=== PATIENT | female | born 1965 | race African-American/Black ===

== ENCOUNTER 2016-07-18 14:06 | Inpatient (IN) | payer MEDICARE, MEDICAID ==
[~2016-07-18] VITALS: Ht 170.2 cm; Wt 101.8 kg
[~2016-07-18 14:06] MED LIST: AMLO10TA2 PO; CARI350T21 PO; CLO01T GT; CLOP75TA41 PO; ESCI20TA51 PO; FAM20T PO; FAMO-12 PO; HYDR200T36 PO; METF-312 PO; MODA100T29 OR; NOR5T GT; OLMETAB3 PO; PRISTIQUE PO; SIMV-8 PO; SOLI5TAB6 PO; VALS160T51 PO
[2016-07-18 15:34] LABS: Basophils # (auto) 0 uL; Basophils % (auto) 0.4 % (0.0-2.0); DEFINITIVE VIEW TRANSMISSION; Eosinophils # (auto) 0.1 uL; Eosinophils % (auto) 1.7 % (0.0-7.0); Hematocrit 43.9 % (36.0-46.0); Hemoglobin 14.5 g/dL (12.2-16.2); Lymphocytes % (auto) 41.1 % (10.0-50.0); Mean Corpuscular Hemoglobin 26.5 pg (28.0-32.0); Mean Corpuscular Volume 80.4 fL (80.0-100.0); Mean Platelet Volume 8.2 fL (7.4-10.4); Monocytes # (auto) 0.2 uL; Monocytes % (auto) 3.1 % (0.0-12.0); Neutrophils # (auto) 2.6 uL; Neutrophils % (auto) 53.7 % (37.0-80.0); Platelet Count (auto) 273 10^3/uL (140-450); Red Cell Distribution Width 12.8 % (11.6-16.0); White Blood Cell 4.9 10^3/uL (4.4-10.8)
[2016-07-18 15:38] LABS: Albumin 4.2 g/dL (3.4-5.0); Calcium 8.9 mg/dL (8.5-10.1); Magnesium 2.2 mg/dL (1.6-2.6); Potassium 3.9 mmol/L (3.5-5.1)
[2016-07-18 15:41] LABS: Bilirubin, Total 0.4 mg/dL (0.2-1.0); Total Protein 8.2 g/dL (6.4-8.2)
[2016-07-18] MEDS ORDERED: SODIUM CHLORIDE 0.9% 1,000 ML IVB ONE (15:44)
[2016-07-18] MEDS ORDERED: SODIUM CHLORIDE 0.9% 1,000 ML IV ONE (16:00)
[2016-07-18 16:07] LABS: Amylase 53 U/L (25-115)
[2016-07-18 16:28] LABS: INR 0.99 (0.9-1.15); Partial Thromboplastin Time 22.8 sec (22.64-33.71); Prothrombin Time 10.2 sec (9.37-12.3)
[2016-07-18 16:30] LABS: Urine RBC None Seen /hpf (0 - 4)
[2016-07-18 16:55] LABS: Urine Bilirubin Negative (Negative); Urine Blood Negative /uL (Negative); Urine Color Colorless (Yellow); Urine Ketone Negative (Negative); Urine Nitrite Negative (Negative); Urine Squamous Epithelial Cell FEW /hpf (<5); Urine Urobilinogen Normal (Negative); Urine pH 5.5 (5.0-8.0)
[2016-07-18 16:56] LABS: Urine Glucose 4+ mg/dL (Normal)
[2016-07-18] MEDS ORDERED: InsuLIN REG 1unit/0.01ml Soln (100units/ml) SC ONE ×2 (17:30→21:00)
[2016-07-18] MEDS ORDERED: InsuLIN REG 1unit/0.01ml Soln (100units/ml) IV ONE ×3 (17:30→23:30)
[2016-07-18] MEDS ORDERED: NITROGLYCERIN 0.4 MG SL TAB SL PRN (23:30)
[2016-07-18] MEDS ORDERED: DEXTROSE (50%) 50ML SYRG IV PRN (23:30)
[2016-07-18] MEDS: SODIUM CHLORIDE 0.9% 1,000 ML IV SCH (23:53)
[2016-07-19] VITALS (7 sets, daily range): BP systolic 102–140; BP diastolic 80–93
[2016-07-19] MEDS ORDERED: HYDROcodone-ACET 10/325MG TAB PO ONE
[2016-07-19] MEDS: ACCU-CHEK COMFORT CURVE STRIP VI SCH ×7 (00:07→23:50)
[2016-07-19] MEDS ORDERED: LINA5TAB PO (00:22)
[2016-07-19] MEDS ORDERED: ESCI20TA PO (00:23)
[2016-07-19] MEDS ORDERED: HYDR-4072 PO ×2 (01:25→01:27)
[2016-07-19] MEDS: InsuLIN REG 1unit/0.01ml Soln (100units/ml) SC SCH ×6 (04:26→20:00)
[2016-07-19] MEDS ORDERED: INFLUENZA QUAD 2016-2017 0.5 ML SYRG IM ONE (04:45)
[2016-07-19] MEDS: cloNIDine HCL 0.1 MG TAB PO SCH ×3 (05:44→22:10)
[2016-07-19 05:47] LABS: Albumin 3.5 g/dL (3.4-5.0); BUN/Creatinine Ratio 12.6; Bilirubin, Total 0.3 mg/dL (0.2-1.0); Calcium 8.5 mg/dL (8.5-10.1); Potassium 3.6 mmol/L (3.5-5.1); Total Protein 6.4 g/dL (6.4-8.2)
[2016-07-19] MEDS ORDERED: metFORMIN HYDROCHLORIDE 500 MG TAB PO ONE (10:00)
[2016-07-19] MEDS ORDERED: INSULIN DETEMIR(LEVEMIR) 1unit/0.01ml Soln (100units/ml) SC ONE (10:00)
[2016-07-19] MEDS ORDERED: FAMOTIDINE 20 MG TAB PO ONE (10:00)
[2016-07-19] MEDS ORDERED: amLODIPine BESYLATE 5 MG TAB PO ONE (10:00)
[2016-07-19] MEDS ORDERED: cloNIDine HCL 0.1 MG TAB PO ONE (10:00)
[2016-07-19] MEDS: metFORMIN HYDROCHLORIDE 500 MG TAB PO SCH ×2 (10:45→22:06)
[2016-07-19] MEDS: SODIUM CHLORIDE 0.9% 1,000 ML IV SCH (12:38)
[2016-07-20] MEDS: SODIUM CHLORIDE 0.9% 1,000 ML IV SCH ×2 (03:30→15:46)
[2016-07-20] MEDS: ACCU-CHEK COMFORT CURVE STRIP VI SCH ×6 (03:30→23:50)
[2016-07-20] MEDS: InsuLIN REG 1unit/0.01ml Soln (100units/ml) SC SCH ×6 (03:39→20:00)
[2016-07-20 05:00] VITALS: BP 136/88
[2016-07-20] MEDS: cloNIDine HCL 0.1 MG TAB PO SCH ×3 (05:40→22:02)
[2016-07-20 08:49] VITALS: BP 141/64
[2016-07-20] MEDS: metFORMIN HYDROCHLORIDE 500 MG TAB PO SCH ×2 (09:37→22:01)
[2016-07-20 13:00] VITALS: BP 131/83
[2016-07-20] MEDS ORDERED: DOCUSATE SOD 100 MG CAP PO PRN (16:00)
[2016-07-20 17:05] VITALS: BP 131/71
[2016-07-20 22:00] VITALS: BP 160/84
[2016-07-20] MEDS: INSULIN DETEMIR(LEVEMIR) 1unit/0.01ml Soln (100units/ml) SC SCH (22:05)
[2016-07-21] MEDS ORDERED: ZOLPIDEM TARTRATE 5 MG TAB PO PRN (00:15)
[2016-07-21] MEDS: InsuLIN REG 1unit/0.01ml Soln (100units/ml) SC SCH ×5 (00:24→16:44)
[2016-07-21] MEDS: ACCU-CHEK COMFORT CURVE STRIP VI SCH ×4 (04:00→16:44)
[2016-07-21] MEDS: SODIUM CHLORIDE 0.9% 1,000 ML IV SCH (04:59)
[2016-07-21 05:00] VITALS: BP 140/109
[2016-07-21] MEDS: cloNIDine HCL 0.1 MG TAB PO SCH ×2 (05:57→16:43)
[2016-07-21 08:47] VITALS: BP 147/96
[2016-07-21] MEDS: INSULIN DETEMIR(LEVEMIR) 1unit/0.01ml Soln (100units/ml) SC SCH (10:00)
[2016-07-21] MEDS: metFORMIN HYDROCHLORIDE 500 MG TAB PO SCH (10:35)
[2016-07-21 13:00] VITALS: BP 147/97
[2016-07-21 17:16] VITALS: BP 136/97
[2016-07-21 18:12] VITALS: BP 136/97
== END 2016-07-21 19:40 | disposition home or self-care (01) | DRG 291 ==
LOC: ER 14:11 → OVERFLOW 14:12 → WEST WING 07-19 00:16
PROVIDERS: ADMIT Internal Medicine Cardiovascular Disease; ATTEND Internal Medicine Cardiovascular Disease
DX: I11.0 Hypertensive heart disease with heart failure (principal); N17.0 Acute kidney failure with tubular necrosis; E11.00 Type 2 diabetes mellitus with hyperosmolarity without nonketotic hyperglycemic-hyperosmolar coma (NKHHC); E87.1 Hypo-osmolality and hyponatremia; E11.65 Type 2 diabetes mellitus with hyperglycemia; I25.10 Atherosclerotic heart disease of native coronary artery without angina pectoris; F32.9 Major depressive disorder, single episode, unspecified; M32.9 Systemic lupus erythematosus, unspecified; I50.9 Heart failure, unspecified; Z82.49 Family history of ischemic heart disease and other diseases of the circulatory system; Z83.3 Family history of diabetes mellitus; Z85.3 Personal history of malignant neoplasm of breast; Z86.73 Personal history of transient ischemic attack (TIA), and cerebral infarction without residual deficits; Z79.899 Other long term (current) drug therapy; Z90.710 Acquired absence of both cervix and uterus; Z80.9 Family history of malignant neoplasm, unspecified; Z23 Encounter for immunization
CPT/HCPCS: 36415; 71010; 80053; 81001; 82150; 82962; 83690; 83735; 84484; 85025; 85049; 85610; 85730; 93005; 94761; 96361; 96372; 96374; G0463; J1815

== ENCOUNTER 2016-07-25 00:45 | Emergency (ER) | payer MEDICARE, MEDICAID ==
[~2016-07-25] VITALS: Ht 170.2 cm; Wt 97.1 kg
[~2016-07-25 00:45] MED LIST changes: -CARI350T21 PO; -CLOP75TA41 PO; +ESCI20TA PO; +HYDR-4072 PO; +LINA5TAB PO; -MODA100T29 OR; -NOR5T GT; -OLMETAB3 PO; -PRISTIQUE PO
[2016-07-25 01:11] VITALS: BP 154/106
[2016-07-25 01:41] LABS: Urine RBC None Seen /hpf (0 - 4)
[2016-07-25 01:50] LABS: Urine Bilirubin Negative (Negative); Urine Blood Negative /uL (Negative); Urine Color Yellow (Yellow); Urine Ketone Negative (Negative); Urine Squamous Epithelial Cell FEW /hpf (<5); Urine Urobilinogen Normal (Negative)
[2016-07-25 01:52] LABS: Urine Glucose 4+ mg/dL (Normal); Urine Nitrite POSITIVE (Negative)
[2016-07-25 01:52] LABS: DEFINITIVE VIEW TRANSMISSION; White Blood Cell 7.6 10^3/uL (4.4-10.8)
[2016-07-25 01:57] LABS: Hematocrit 39.8 % (36.0-46.0); Hemoglobin 12.9 g/dL (12.2-16.2); Mean Corpuscular Hemoglobin 26.4 pg (28.0-32.0); Mean Corpuscular Hgb Conc. 32.4 g/dL (32.0-36.0); Mean Corpuscular Volume 81.5 fL (80.0-100.0); Platelet Count (auto) 284 10^3/uL (140-450); Red Cell Distribution Width 13.7 % (11.6-16.0)
[2016-07-25 02:03] LABS: Metamyelocytes % 0; Myelocytes % 0; Promyelocytes % 0; Reactive Lymphocytes 0
[2016-07-25 02:10] LABS: BUN/Creatinine Ratio 11.5; Calcium 8.6 mg/dL (8.5-10.1); Magnesium 1.7 mg/dL (1.6-2.6); Potassium 3.7 mmol/L (3.5-5.1)
[2016-07-25 02:13] LABS: Bilirubin, Total 0.3 mg/dL (0.2-1.0); Total Protein 7.6 g/dL (6.4-8.2)
[2016-07-25 02:28] LABS: Hypersegmented Neutrophils Present; Platelet Estimate Adequate; RBC Morphology Normal
== END 2016-07-25 01:41 | disposition left against medical advice (07) ==
LOC: ER 00:47
DX: R73.9 Hyperglycemia, unspecified (principal); Z53.21 Procedure and treatment not carried out due to patient leaving prior to being seen by health care provider
CPT/HCPCS: 36415; 80053; 81001; 82962; 83735; 85007; 85027; 85049

== ENCOUNTER → 2016-10-24 | Outpatient (CLI) | payer MEDICARE, MEDICAID ==
[2016-10-24 12:55] LABS: BUN/Creatinine Ratio 18.9; Calcium 10.3 mg/dL (8.5-10.1); Potassium 4.2 mmol/L (3.5-5.1)
== END | disposition home or self-care (01) ==
LOC: LAB 09:45
PROVIDERS: ATTEND Internal Medicine Cardiovascular Disease
DX: I10 Essential (primary) hypertension (principal); E11.9 Type 2 diabetes mellitus without complications
CPT/HCPCS: 36415; 80048; 83036

== ENCOUNTER → 2017-02-22 | Outpatient (CLI) | payer MEDICARE, MEDICAID ==
[~2017-02-22] MED LIST changes: -METF-312 PO; +METF-370 PO
== END | disposition home or self-care (01) ==
LOC: Rad HDHVI 13:49
PROVIDERS: ATTEND Internal Medicine Cardiovascular Disease
DX: I10 Essential (primary) hypertension (principal); E78.5 Hyperlipidemia, unspecified
CPT/HCPCS: 93306

== ENCOUNTER → 2017-03-06 | Outpatient (CLI) | payer MEDICARE, MEDICAID ==
[~2017-03-06] VITALS: Ht 170.2 cm; Wt 105.2 kg
[~2017-03-06] MED LIST changes: +ADENOSINE 88 MG in GIVE UN-DILUTED 0 ML IV ONE; +ADENOSINE 90 MG/30 ML INJ IV ONE
== END | disposition home or self-care (01) ==
LOC: Rad HDHVI 13:51
PROVIDERS: ATTEND Internal Medicine Cardiovascular Disease
DX: I11.0 Hypertensive heart disease with heart failure (principal); I50.9 Heart failure, unspecified; E78.00 Pure hypercholesterolemia, unspecified; E11.9 Type 2 diabetes mellitus without complications
CPT/HCPCS: 78452; 93005; 96374; 96375; A9500; J0153

== ENCOUNTER → 2017-03-11 | Outpatient (CLI) | payer MEDICARE, MEDICAID ==
[~2017-03-11] MED LIST changes: -ADENOSINE 88 MG in GIVE UN-DILUTED 0 ML IV ONE; -ADENOSINE 90 MG/30 ML INJ IV ONE
== END | disposition home or self-care (01) ==
LOC: LAB 14:30
PROVIDERS: ATTEND Internal Medicine Cardiovascular Disease
DX: R94.4 Abnormal results of kidney function studies (principal); I11.0 Hypertensive heart disease with heart failure; I50.9 Heart failure, unspecified; I25.10 Atherosclerotic heart disease of native coronary artery without angina pectoris; E11.9 Type 2 diabetes mellitus without complications
CPT/HCPCS: 36415; 82565; 84520

== ENCOUNTER → 2017-03-20 | Outpatient (CLI) | payer MEDICARE, MEDICAID ==
[~2017-03-20] MED LIST changes: +IOHEXOL 350 MG/ML 100ML IJ ONE; +SODIUM CHLORIDE 0.9% 1,000 ML IV SCH
[2017-03-20 15:05] VITALS: BP 130/87
== END | disposition home or self-care (01) ==
LOC: Rad HDHVI 14:47
PROVIDERS: ATTEND Internal Medicine Cardiovascular Disease
DX: I50.9 Heart failure, unspecified (principal); I63.9 Cerebral infarction, unspecified; R06.02 Shortness of breath; R51 Headache
CPT/HCPCS: 71260; 82565; 96361; 96374; G0463; Q9967; 96360

== ENCOUNTER → 2017-03-21 | Outpatient (CLI) | payer MEDICARE, MEDICAID ==
[2017-03-21 10:00] VITALS: BP 129/75
[2017-03-21 13:05] VITALS: BP 142/89
== END ==
LOC: Rad HDHVI 09:53
PROVIDERS: ATTEND Internal Medicine Cardiovascular Disease
DX: I50.9 Heart failure, unspecified (principal); I63.9 Cerebral infarction, unspecified; R06.02 Shortness of breath; R04.0 Epistaxis; R51 Headache
CPT/HCPCS: 70496; 70498; 71275; 82565; 96361; 96374; G0463; Q9967; 96360

== ENCOUNTER → 2017-06-11 | Outpatient (CLI) | payer MEDICARE, MEDICAID ==
[~2017-06-11] MED LIST changes: -IOHEXOL 350 MG/ML 100ML IJ ONE; -SODIUM CHLORIDE 0.9% 1,000 ML IV SCH
[2017-06-11 12:50] LABS: BUN/Creatinine Ratio 8.2; Bilirubin, Total 0.3 mg/dL (0.2-1.0); Calcium 8.4 mg/dL (8.5-10.1); Potassium 3.7 mmol/L (3.5-5.1); Total Protein 7.8 g/dL (6.4-8.2)
== END | disposition home or self-care (01) ==
LOC: LAB 10:28
PROVIDERS: ATTEND Internal Medicine Cardiovascular Disease
DX: E78.00 Pure hypercholesterolemia, unspecified (principal); E11.9 Type 2 diabetes mellitus without complications; I11.0 Hypertensive heart disease with heart failure; I50.9 Heart failure, unspecified; D64.9 Anemia, unspecified
CPT/HCPCS: 36415; 80053; 80061; 83036

== ENCOUNTER → 2017-06-25 | Outpatient (CLI) | payer MEDICARE, MEDICAID | END | disposition home or self-care (01) | LOC: Rad HDHVI 13:05 | PROVIDERS: ATTEND Internal Medicine Cardiovascular Disease | DX: M25.78 Osteophyte, vertebrae (principal); M47.892 Other spondylosis, cervical region; I11.0 Hypertensive heart disease with heart failure; I50.9 Heart failure, unspecified; E11.9 Type 2 diabetes mellitus without complications; R51 Headache | CPT/HCPCS: 70450; 72125 ==

== ENCOUNTER → 2017-08-19 | Outpatient (CLI) | payer MEDICARE, MEDICAID ==
[2017-08-19 16:41] LABS: Basophils # (auto) 0 uL; Basophils % (auto) 0.4 % (0.0-2.0); Eosinophils # (auto) 0.1 uL; Eosinophils % (auto) 1.7 % (0.0-7.0); Hematocrit 40.1 % (36.0-46.0); Hemoglobin 13.4 g/dL (12.2-16.2); Lymphocytes # (auto) 2.8 uL; Lymphocytes % (auto) 45.6 % (10.0-50.0); Mean Corpuscular Hemoglobin 27.8 pg (28.0-32.0); Mean Corpuscular Hgb Conc. 33.5 g/dL (32.0-36.0); Monocytes # (auto) 0.2 uL; Monocytes % (auto) 3.8 % (0.0-12.0); Neutrophils # (auto) 2.9 uL; Neutrophils % (auto) 48.5 % (37.0-80.0); Nucleated Red Blood Cells % 0.1 %; Platelet Count (auto) 233 10^3/uL (140-450); Red Blood Cells 4.83 10^6/uL (4.0-5.20); Red Cell Distribution Width 12.4 % (11.8-14.3)
== END | disposition home or self-care (01) ==
LOC: LAB 12:59
PROVIDERS: ATTEND Internal Medicine Cardiovascular Disease
DX: D64.9 Anemia, unspecified (principal); E03.9 Hypothyroidism, unspecified
CPT/HCPCS: 36415; 84439; 84443; 85025

== ENCOUNTER → 2018-08-01 | Outpatient (CLI) | payer MEDICARE, MEDICAID ==
[~2018-08-01] MED LIST changes: +AMLO10TA12 PO; -AMLO10TA2 PO
[2018-08-01 15:19] LABS: Calcium 9.1 mg/dL (8.5-10.1); Potassium 4.1 mmol/L (3.5-5.1); Uric Acid 7.2 mg/dL (2.6-6.0)
== END | disposition home or self-care (01) ==
LOC: LAB 11:18
PROVIDERS: ATTEND Internal Medicine Cardiovascular Disease
DX: I10 Essential (primary) hypertension (principal); M10.9 Gout, unspecified
CPT/HCPCS: 36415; 80048; 84550

== ENCOUNTER 2018-08-04 21:46 | Emergency (ER) | payer MEDICARE, MEDICAID ==
[~2018-08-04] VITALS: Ht 170.2 cm; Wt 106.1 kg
[2018-08-04 22:13] VITALS: BP 149/92
[2018-08-04 22:30] LABS: Hemoglobin 13.1 g/dL (12.2-16.2); Mean Corpuscular Hemoglobin 28.5 pg (28.0-32.0); Mean Corpuscular Hgb Conc. 34.5 g/dL (32.0-36.0); Mean Corpuscular Volume 82.5 fL (80.0-100.0); Platelet Count (auto) 244 10^3/uL (140-450); Red Cell Distribution Width 13.1 % (11.8-14.3); White Blood Cell 6.1 10^3/uL (4.4-10.8)
[2018-08-04 22:32] LABS: Band Neutrophils % (manual) 0; Basophils % (manual) 0 (0.0-2.0); Blast Cells 0; Metamyelocytes % 0; Myelocytes % 0; Promyelocytes % 0; Reactive Lymphocytes 0
[2018-08-04 22:34] LABS: BUN/Creatinine Ratio 11.3; Calcium 8.8 mg/dL (8.5-10.1); Potassium 3.5 mmol/L (3.5-5.1)
[2018-08-04 22:39] LABS: Bilirubin, Total 0.3 mg/dL (0.2-1.0); Total Protein 7.6 g/dL (6.4-8.2)
[2018-08-04 22:40] LABS: INR 0.9 (0.9-1.15); Partial Thromboplastin Time 23.3 sec (23.78-33.04); Prothrombin Time 9.7 sec (9.27-12.13)
[2018-08-04 23:00] LABS: Eosinophils % (manual) 3 (0-7); Lymphocytes % (manual) 59 (10.0-50.0); Monocytes % (manual) 4 (0-12)
== END 2018-08-05 01:56 | disposition left against medical advice (07) ==
LOC: ER 21:48
DX: R07.9 Chest pain, unspecified (principal); Z53.21 Procedure and treatment not carried out due to patient leaving prior to being seen by health care provider
CPT/HCPCS: 36415; 71046; 80053; 84484; 85007; 85027; 85379; 85610; 85730; 93005

== ENCOUNTER 2021-05-31 12:56 | Inpatient (IN) | payer MEDICARE, MEDICAID ==
[~2021-05-31] VITALS: Ht 170.2 cm; Wt 104.0 kg
[~2021-05-31 12:56] MED LIST changes: +AMLO-496 PO; -AMLO10TA12 PO; -CLO01T GT; +CLO01T PO; +ESCI-34 PO; -ESCI20TA51 PO; -FAM20T PO; +FAMO20TA10 PO; +VALS160T4 PO; -VALS160T51 PO
[2021-05-31] MEDS ORDERED: hydrALAZINE HCL 20 MG/ML VL IV ONE (13:15)
[2021-05-31 14:26] LABS: Basophils # (auto) 0.1 10 ^3/uL (0-0.2); Eosinophils # (auto) 0.1 10 ^3/uL (0-0.8); Eosinophils % (auto) 0.9 % (0.0-7.0); Hematocrit 40.6 % (36.0-46.0); Hemoglobin 13.9 g/dL (12.2-16.2); Lymphocytes # (auto) 2.4 10 ^3/uL (0.4-5.4); Lymphocytes % (auto) 38.9 % (10.0-50.0); Mean Corpuscular Hgb Conc. 34.3 g/dL (32.0-36.0); Mean Corpuscular Volume 81.6 fL (80.0-100.0); Monocytes # (auto) 0.3 10 ^3/uL (0-1.3); Monocytes % (auto) 4.5 % (0.0-12.0); Neutrophils # (auto) 3.3 10 ^3/uL (1.6-8.6); Neutrophils % (auto) 54.7 % (37.0-80.0); Red Blood Cells 4.98 10^6/uL (4.0-5.20); Red Cell Distribution Width 13.4 % (11.8-14.3); White Blood Cell 6.1 10^3/uL (4.4-10.8)
[2021-05-31 14:44] LABS: Calcium 8.9 mg/dL (8.5-10.1); Magnesium 2.4 mg/dL (1.6-2.6); Potassium 3.2 mmol/L (3.5-5.1)
[2021-05-31 14:50] LABS: BUN/Creatinine Ratio 8.9; Bilirubin, Total 0.5 mg/dL (0.2-1.0); Total Protein 8.1 g/dL (6.4-8.2)
[2021-05-31] MEDS ORDERED: IOHEXOL 350 MG/ML 100ML IJ ONE (15:43)
[2021-05-31] MEDS ORDERED: ASPirin 81 mg TAB PO ONE (15:45)
[2021-05-31] MEDS ORDERED: ENOXAPARIN SOD 100 MG/1 ML SYRINGE SC ONE (15:45)
[2021-05-31] MEDS ORDERED: HYDROcodone-ACET 10/325MG TAB PO ONE (16:30)
[2021-05-31] MEDS ORDERED: ACETAMINOPHEN 325 MG TAB PO PRN (21:15)
[2021-05-31] MEDS ORDERED: hydrALAZINE HCL 20 MG/ML VL IV PRN (21:15)
[2021-05-31] MEDS ORDERED: ONDANSETRON HCL 4 MG/2 ML VIAL IV PRN (21:15)
[2021-06-01] MEDS: cloNIDine HCL 0.1 MG TAB PO SCH ×2 (00:24→06:59)
[2021-06-01] MEDS: VALSARTAN 80 MG TAB PO SCH ×3 (00:25→22:00)
[2021-06-01] MEDS: ATORVASTATIN 20 MG TAB PO SCH ×2 (00:25→22:34)
[2021-06-01] MEDS ORDERED: DEXTROSE (50%) 50ML SYRG IV PRN (02:00)
[2021-06-01 02:05] VITALS: BP 141/80
[2021-06-01] MEDS: TEMAZEPAM 15 MG CAP PO PRN ×2 (02:29→22:42)
[2021-06-01 05:15] VITALS: BP 119/68
[2021-06-01] MEDS: InsuLIN REG 1unit/0.01ml Soln (100units/ml) SC SCH ×4 (06:58→22:36)
[2021-06-01] MEDS: ACCU-CHEK COMFORT CURVE STRIP VI SCH ×4 (06:58→22:42)
[2021-06-01 09:29] VITALS: BP 100/52
[2021-06-01 09:39] LABS: Basophils # (auto) 0 10 ^3/uL (0-0.2); Basophils % (auto) 0.7 % (0.0-2.0); Eosinophils # (auto) 0.1 10 ^3/uL (0-0.8); Eosinophils % (auto) 1.8 % (0.0-7.0); Hematocrit 38.1 % (36.0-46.0); Hemoglobin 12.7 g/dL (12.2-16.2); Lymphocytes # (auto) 2.6 10 ^3/uL (0.4-5.4); Lymphocytes % (auto) 52.2 % (10.0-50.0); Mean Corpuscular Hemoglobin 27.5 pg (28.0-32.0); Mean Corpuscular Hgb Conc. 33.3 g/dL (32.0-36.0); Mean Corpuscular Volume 82.6 fL (80.0-100.0); Monocytes # (auto) 0.3 10 ^3/uL (0-1.3); Monocytes % (auto) 6.2 % (0.0-12.0); Neutrophils # (auto) 1.9 10 ^3/uL (1.6-8.6); Neutrophils % (auto) 39.1 % (37.0-80.0); Nucleated Red Blood Cells % 0.2 %; Red Blood Cells 4.61 10^6/uL (4.0-5.20); Red Cell Distribution Width 13.3 % (11.8-14.3)
[2021-06-01] MEDS ORDERED: POTASSIUM CHL 20 Meq TABLET PO ONE ×2 (10:00→11:30)
[2021-06-01] MEDS ORDERED: ASPirin 81 mg TAB PO SCH (10:00)
[2021-06-01 10:02] LABS: Albumin 3.2 g/dL (3.4-5.0); Calcium 8.3 mg/dL (8.5-10.1); Potassium 3.2 mmol/L (3.5-5.1)
[2021-06-01 10:06] LABS: BUN/Creatinine Ratio 12.9; Bilirubin, Total 0.6 mg/dL (0.2-1.0); Total Protein 6.2 g/dL (6.4-8.2)
[2021-06-01 11:06] LABS: Cholesterol 198 mg/dL (< 200); HDL Cholesterol 36 mg/dL (40-59); LDL Cholesterol 128 mg/dL (< 100); Triglycerides 169 mg/dL (< 150)
[2021-06-01] MEDS: PANTOPRAZOLE 40 MG TAB PO SCH (11:18)
[2021-06-01] MEDS: ENOXAPARIN SOD 40 MG/0.4 ML SYRINGE SC SCH (11:19)
[2021-06-01] MEDS: amLODIPine BESYLATE 5 MG TAB PO SCH (11:59)
[2021-06-01 12:52] VITALS: BP 137/84
[2021-06-01] MEDS ORDERED: ERGOCALCIFEROL 50,000 UNIT(1.25MG) CAP PO SCH (14:30)
[2021-06-01] MEDS: hydrALAZINE HCL 10 MG TAB PO SCH ×2 (15:17→22:00)
[2021-06-01] MEDS: HYDROcodone-ACET 10/325MG TAB PO PRN ×2 (15:17→19:35)
[2021-06-01 16:32] VITALS: BP 127/75
[2021-06-01 18:52] LABS: Urine Bacteria FEW /hpf (None Seen); Urine Blood Negative /uL (Negative); Urine Hyaline Cast FEW /lpf (0 - 2); Urine Mucus FEW (None Seen); Urine Specific Gravity 1.035 (1.001-1.035); Urine WBC 56 /hpf (0 - 5)
[2021-06-01 20:00] VITALS: BP 104/53
[2021-06-01] MEDS: hydrOXYchloroQUINE SULFATE 200 MG TAB PO SCH (22:35)
[2021-06-02 05:00] VITALS: BP 127/76
[2021-06-02] MEDS: hydrALAZINE HCL 10 MG TAB PO SCH ×2 (05:58→14:11)
[2021-06-02] MEDS ORDERED: INFLUENZA QUAD 2021-2022 0.5 ML SYRG IM ONE (06:30)
[2021-06-02] MEDS: ACCU-CHEK COMFORT CURVE STRIP VI SCH ×2 (06:42→11:45)
[2021-06-02] MEDS: InsuLIN REG 1unit/0.01ml Soln (100units/ml) SC SCH ×2 (06:42→11:46)
[2021-06-02] MEDS ORDERED: ADENOSINE 87 MG in GIVE UN-DILUTED 0 ML IV ONE (08:30)
[2021-06-02 08:51] VITALS: BP 123/88
[2021-06-02] MEDS ORDERED: ASPirin 81 mg TAB PO SCH (10:00)
[2021-06-02] MEDS: PANTOPRAZOLE 40 MG TAB PO SCH (10:01)
[2021-06-02] MEDS: HYDROcodone-ACET 10/325MG TAB PO PRN ×2 (10:01→14:14)
[2021-06-02] MEDS: VALSARTAN 80 MG TAB PO SCH (10:02)
[2021-06-02] MEDS: amLODIPine BESYLATE 5 MG TAB PO SCH (10:03)
[2021-06-02] MEDS: ENOXAPARIN SOD 40 MG/0.4 ML SYRINGE SC SCH (10:04)
[2021-06-02] MEDS: hydrOXYchloroQUINE SULFATE 200 MG TAB PO SCH (10:04)
[2021-06-02 11:57] LABS: BUN/Creatinine Ratio 13.3; Calcium 8.4 mg/dL (8.5-10.1); Potassium 3.8 mmol/L (3.5-5.1)
[2021-06-02 13:00] VITALS: BP 128/82
[2021-06-02] MEDS ORDERED: CIPROFLOXACIN HCL 500 MG TAB PO ONE (14:15)
[2021-06-02] MEDS ORDERED: CIP500T PO (15:04)
[2021-06-02 17:00] VITALS: BP 123/73
[2021-06-02 17:04] VITALS: BP 123/73
[2021-06-02] MEDS ORDERED: CIPROFLOXACIN HCL 500 MG TAB PO SCH (22:00)
== END 2021-06-02 17:50 | disposition home or self-care (01) | DRG 280 ==
LOC: EDBD 12:56 → ER 12:56 → TELE 21:12 → TELE-CENTR 06-01 02:05
PROVIDERS: ADMIT Nurse Practitioner; ATTEND Internal Medicine
DX: I16.1 Hypertensive emergency (principal); I21.4 Non-ST elevation (NSTEMI) myocardial infarction; N17.0 Acute kidney failure with tubular necrosis; I69.359 Hemiplegia and hemiparesis following cerebral infarction affecting unspecified side; N39.0 Urinary tract infection, site not specified; I13.0 Hypertensive heart and chronic kidney disease with heart failure and stage 1 through stage 4 chronic kidney disease, or unspecified chronic kidney disease; Z20.822 Contact with and (suspected) exposure to COVID-19; E11.22 Type 2 diabetes mellitus with diabetic chronic kidney disease; E66.01 Morbid (severe) obesity due to excess calories; E78.5 Hyperlipidemia, unspecified; E87.6 Hypokalemia; I50.9 Heart failure, unspecified; E11.21 Type 2 diabetes mellitus with diabetic nephropathy; I25.10 Atherosclerotic heart disease of native coronary artery without angina pectoris; N18.30 Chronic kidney disease, stage 3 unspecified; Z79.4 Long term (current) use of insulin; Z80.6 Family history of leukemia; Z82.49 Family history of ischemic heart disease and other diseases of the circulatory system; Z83.3 Family history of diabetes mellitus; Z85.3 Personal history of malignant neoplasm of breast; Z90.710 Acquired absence of both cervix and uterus; Z68.35 Body mass index [BMI] 35.0-35.9, adult
CPT/HCPCS: 36415; 70450; 71045; 71275; 78452; 80048; 80053; 80061; 81001; 82306; 82962; 83036; 83735; 84443; 84484; 85025; 85379; 87426; 90686; 93005; 93017; 93306; 96372; 96374; G0378; J0153; J1815

== ENCOUNTER 2022-04-02 20:40 | Inpatient (IN) | payer MEDICARE, MEDICAID ==
[~2022-04-02] VITALS: Ht 170.2 cm; Wt 107.0 kg
[~2022-04-02 20:40] MED LIST changes: +CIP500T PO
[2022-04-03 01:53] LABS: Basophils # (auto) 0 10 ^3/uL (0-0.2); Basophils % (auto) 0.4 % (0.0-2.0); Eosinophils # (auto) 0.1 10 ^3/uL (0-0.8); Eosinophils % (auto) 1.2 % (0.0-7.0); Hematocrit 36.8 % (36.0-46.0); Hemoglobin 12.9 g/dL (12.2-16.2); Lymphocytes # (auto) 3.5 10 ^3/uL (0.4-5.4); Lymphocytes % (auto) 45.5 % (10.0-50.0); Mean Corpuscular Hemoglobin 27.8 pg (28.0-32.0); Mean Corpuscular Volume 79.4 fL (80.0-100.0); Monocytes # (auto) 0.4 10 ^3/uL (0-1.3); Monocytes % (auto) 5.5 % (0.0-12.0); Neutrophils # (auto) 3.6 10 ^3/uL (1.6-8.6); Neutrophils % (auto) 47.4 % (37.0-80.0); Nucleated Red Blood Cells % 0.1 %; Red Blood Cells 4.64 10^6/uL (4.0-5.20); White Blood Cell 7.6 10^3/uL (4.4-10.8)
[2022-04-03 02:09] LABS: Albumin 4.2 g/dL (3.4-5.0); BUN/Creatinine Ratio 9.7; Calcium 9.1 mg/dL (8.5-10.1); Potassium 3.6 mmol/L (3.5-5.1)
[2022-04-03 02:24] LABS: Bilirubin, Total 0.5 mg/dL (0.2-1.0); Total Protein 7.2 g/dL (6.4-8.2)
[2022-04-03] MEDS ORDERED: amLODIPine BESYLATE 5 MG TAB PO ONE (04:45)
[2022-04-03] MEDS ORDERED: MORPHINE SULFATE INJ 2 MG/ml SYRG IV PRN (05:30)
[2022-04-03] MEDS ORDERED: ACETAMINOPHEN 325 MG TAB PO PRN (05:30)
[2022-04-03] MEDS ORDERED: TEMAZEPAM 15 MG CAP PO PRN (05:30)
[2022-04-03] MEDS ORDERED: ONDANSETRON HCL 4 MG/2 ML VIAL IV PRN (05:30)
[2022-04-03] MEDS ORDERED: DEXTROSE (50%) 50ML SYRG IV PRN (05:30)
[2022-04-03] MEDS ORDERED: NITROGLYCERIN 0.4 MG SL TAB SL PRN (05:30)
[2022-04-03] MEDS ORDERED: hydrALAZINE HCL 20 MG/ML VL IV PRN (05:30)
[2022-04-03] MEDS ORDERED: ONDANSETRON HCL 4 MG/2 ML VIAL IM ONE (05:45)
[2022-04-03] MEDS: cloNIDine HCL 0.1 MG TAB PO SCH ×3 (06:00→21:45)
[2022-04-03] MEDS: ACCU-CHEK COMFORT CURVE STRIP VI SCH ×4 (07:00→22:00)
[2022-04-03] MEDS: InsuLIN REG 1unit/0.01ml Soln (100units/ml) SC SCH ×4 (07:44→21:44)
[2022-04-03] MEDS: ENOXAPARIN SOD 30 MG/0.3 ML SYRINGE SC SCH (09:47)
[2022-04-03] MEDS: VALSARTAN 80 MG TAB PO SCH (09:48)
[2022-04-03] MEDS: amLODIPine BESYLATE 5 MG TAB PO SCH (09:48)
[2022-04-03] MEDS: hydrOXYchloroQUINE SULFATE 200 MG TAB PO SCH ×2 (09:48→21:45)
[2022-04-03] MEDS: PANTOPRAZOLE 40 MG TAB PO SCH (09:49)
[2022-04-03 21:36] VITALS: BP 140/59
[2022-04-03] MEDS: ATORVASTATIN 20 MG TAB PO SCH (21:44)
[2022-04-03] MEDS ORDERED: ISOS1TAB28 PO (21:54)
[2022-04-03] MEDS ORDERED: PRED1PAK9 PO (21:54)
[2022-04-03] MEDS ORDERED: BACL10TA PO (21:54)
[2022-04-03] MEDS ORDERED: ATOR40TA52 PO (21:54)
[2022-04-03] MEDS ORDERED: LORA-622 PO (21:54)
[2022-04-03] MEDS ORDERED: CLOP75TA70 PO (21:54)
[2022-04-03] MEDS ORDERED: PANT40T PO (21:54)
[2022-04-03] MEDS ORDERED: INSU1INJ13 SC (21:54)
[2022-04-03] MEDS ORDERED: DULO1CAP5 PO (21:54)
[2022-04-03] MEDS ORDERED: ASPI1TAB20 PO (21:54)
[2022-04-03] MEDS ORDERED: GABA300C10 PO (21:54)
[2022-04-03] MEDS ORDERED: ALBUAER3 IN (21:54)
[2022-04-03 22:00] VITALS: BP 140/59
[2022-04-04 05:00] VITALS: BP 121/63
[2022-04-04] MEDS: cloNIDine HCL 0.1 MG TAB PO SCH ×3 (06:17→21:45)
[2022-04-04] MEDS: InsuLIN REG 1unit/0.01ml Soln (100units/ml) SC SCH ×5 (06:18→23:32)
[2022-04-04] MEDS: ACCU-CHEK COMFORT CURVE STRIP VI SCH ×5 (06:20→23:27)
[2022-04-04 06:27] LABS: Hemoglobin 12.4 g/dL (12.2-16.2); Mean Corpuscular Volume 79.9 fL (80.0-100.0)
[2022-04-04 06:29] LABS: Hematocrit 36.8 % (36.0-46.0); Mean Corpuscular Hemoglobin 26.9 pg (28.0-32.0); Mean Corpuscular Hgb Conc. 33.7 g/dL (32.0-36.0); Red Cell Distribution Width 13.1 % (11.8-14.3); White Blood Cell 6.2 10^3/uL (4.4-10.8)
[2022-04-04 06:31] LABS: Albumin 3.5 g/dL (3.4-5.0); Calcium 8.7 mg/dL (8.5-10.1)
[2022-04-04 06:33] LABS: BUN/Creatinine Ratio 15.6
[2022-04-04 06:36] LABS: Bilirubin, Total 0.6 mg/dL (0.2-1.0); Total Protein 6.2 g/dL (6.4-8.2)
[2022-04-04 06:44] LABS: Basophils % (manual) 0 (0.0-2.0); Blast Cells 0; Metamyelocytes % 0; Myelocytes % 0; Promyelocytes % 0; Reactive Lymphocytes 0
[2022-04-04 09:00] VITALS: BP 104/63
[2022-04-04] MEDS: amLODIPine BESYLATE 5 MG TAB PO SCH (10:59)
[2022-04-04] MEDS: VALSARTAN 80 MG TAB PO SCH (10:59)
[2022-04-04] MEDS: hydrOXYchloroQUINE SULFATE 200 MG TAB PO SCH ×2 (11:00→21:46)
[2022-04-04] MEDS: PANTOPRAZOLE 40 MG TAB PO SCH (11:00)
[2022-04-04] MEDS: predniSONE 5 MG TAB PO SCH (11:01)
[2022-04-04] MEDS: ENOXAPARIN SOD 30 MG/0.3 ML SYRINGE SC SCH (11:01)
[2022-04-04 13:00] VITALS: BP 109/54
[2022-04-04 15:02] VITALS: BP 117/62
[2022-04-04 16:47] VITALS: BP 132/57
[2022-04-04] MEDS: SALINE 0.65 % NASAL SPRAY 45ML BOTTLE EACHNOSTRI SCH ×2 (18:36→21:44)
[2022-04-04] MEDS: ATORVASTATIN 20 MG TAB PO SCH (21:44)
[2022-04-04 22:00] VITALS: BP 143/88
[2022-04-04] MEDS ORDERED: DEXTROSE (50%) 50ML SYRG IV PRN (23:15)
[2022-04-05] MEDS: ACCU-CHEK COMFORT CURVE STRIP VI SCH ×6 (04:09→23:21)
[2022-04-05] MEDS: InsuLIN REG 1unit/0.01ml Soln (100units/ml) SC SCH ×6 (04:19→23:37)
[2022-04-05 05:00] VITALS: BP 108/69
[2022-04-05] MEDS: cloNIDine HCL 0.1 MG TAB PO SCH ×3 (05:31→21:12)
[2022-04-05] MEDS: SALINE 0.65 % NASAL SPRAY 45ML BOTTLE EACHNOSTRI SCH ×4 (05:32→21:03)
[2022-04-05] MEDS: predniSONE 5 MG TAB PO SCH (08:25)
[2022-04-05] MEDS: VALSARTAN 80 MG TAB PO SCH (08:25)
[2022-04-05] MEDS: ENOXAPARIN SOD 30 MG/0.3 ML SYRINGE SC SCH (08:26)
[2022-04-05] MEDS: PANTOPRAZOLE 40 MG TAB PO SCH (08:26)
[2022-04-05] MEDS: hydrOXYchloroQUINE SULFATE 200 MG TAB PO SCH ×2 (08:26→21:03)
[2022-04-05] MEDS: amLODIPine BESYLATE 5 MG TAB PO SCH (08:26)
[2022-04-05] MEDS: HYDROcodone-ACET 7.5/325MG TAB PO PRN ×2 (08:27→17:18)
[2022-04-05 09:00] VITALS: BP 122/76
[2022-04-05 13:00] VITALS: BP 148/81
[2022-04-05] MEDS ORDERED: LORazepam 2MG/ML-1ML VIAL IV ONE (13:45)
[2022-04-05 17:00] VITALS: BP 100/68
[2022-04-05] MEDS: ATORVASTATIN 20 MG TAB PO SCH (21:03)
[2022-04-05 22:00] VITALS: BP 112/68
[2022-04-06] MEDS: ACCU-CHEK COMFORT CURVE STRIP VI SCH ×3 (03:31→12:00)
[2022-04-06] MEDS: InsuLIN REG 1unit/0.01ml Soln (100units/ml) SC SCH ×3 (03:33→12:00)
[2022-04-06 05:00] VITALS: BP 120/78
[2022-04-06] MEDS: cloNIDine HCL 0.1 MG TAB PO SCH (05:27)
[2022-04-06] MEDS: SALINE 0.65 % NASAL SPRAY 45ML BOTTLE EACHNOSTRI SCH ×2 (05:31→12:00)
[2022-04-06] MEDS: VALSARTAN 80 MG TAB PO SCH (08:15)
[2022-04-06] MEDS: PANTOPRAZOLE 40 MG TAB PO SCH (08:15)
[2022-04-06] MEDS: hydrOXYchloroQUINE SULFATE 200 MG TAB PO SCH (08:15)
[2022-04-06] MEDS: predniSONE 5 MG TAB PO SCH (08:15)
[2022-04-06] MEDS: ENOXAPARIN SOD 30 MG/0.3 ML SYRINGE SC SCH (08:16)
[2022-04-06] MEDS: amLODIPine BESYLATE 5 MG TAB PO SCH (08:16)
[2022-04-06 09:00] VITALS: BP 117/62
[2022-04-06 11:46] VITALS: BP 117/73
== END 2022-04-06 12:40 | disposition home health service (06) | DRG 303 ==
LOC: ER 20:42 → TELE 04-03 05:24 → TELE-CENTR 04-03 20:32
PROVIDERS: ADMIT Nurse Practitioner; ATTEND Family Medicine
DX: I25.110 Atherosclerotic heart disease of native coronary artery with unstable angina pectoris (principal); I16.1 Hypertensive emergency; I50.32 Chronic diastolic (congestive) heart failure; I67.4 Hypertensive encephalopathy; E11.21 Type 2 diabetes mellitus with diabetic nephropathy; E66.9 Obesity, unspecified; E78.5 Hyperlipidemia, unspecified; I11.0 Hypertensive heart disease with heart failure; E11.40 Type 2 diabetes mellitus with diabetic neuropathy, unspecified; Z20.822 Contact with and (suspected) exposure to COVID-19; E78.00 Pure hypercholesterolemia, unspecified; Z80.6 Family history of leukemia; Z82.49 Family history of ischemic heart disease and other diseases of the circulatory system; Z83.3 Family history of diabetes mellitus; Z86.73 Personal history of transient ischemic attack (TIA), and cerebral infarction without residual deficits; Z90.710 Acquired absence of both cervix and uterus; Z68.36 Body mass index [BMI] 36.0-36.9, adult
CPT/HCPCS: 36415; 71045; 80053; 82962; 84484; 85007; 85025; 85027; 93005; 93306; 96372; G0378; J1815; J2405

== ENCOUNTER → 2022-08-14 | Outpatient (CLI) | payer MEDICARE, MEDICAID ==
[~2022-08-14] VITALS: Ht 170.2 cm; Wt 98.9 kg
[~2022-08-14] MED LIST changes: +ADENOSINE 83 MG in GIVE UN-DILUTED 0 ML IV ONE; +ADENOSINE 90 MG/30 ML INJ IV ONE; +ALBUAER3 IN; +ASPI1TAB20 PO; +ATOR40TA52 PO; +BACL10TA PO; +CLOP75TA70 PO; +DULO1CAP5 PO; +GABA300C10 PO; +INSU1INJ13 SC; +ISOS1TAB28 PO; +LORA-622 PO; +PANT40T PO; +PRED1PAK9 PO
== END | disposition home or self-care (01) ==
LOC: Rad HDHVI 13:04
PROVIDERS: ATTEND Internal Medicine Cardiovascular Disease
DX: R07.9 Chest pain, unspecified (principal); R06.02 Shortness of breath; E11.9 Type 2 diabetes mellitus without complications; I25.2 Old myocardial infarction; I10 Essential (primary) hypertension; E78.5 Hyperlipidemia, unspecified
CPT/HCPCS: 78452; 93005; 96374; 96375; A9500; J0153

== ENCOUNTER 2023-02-22 02:34 | Emergency (ER) | payer MEDICARE, MEDICAID ==
[~2023-02-22] VITALS: Ht 170.2 cm; Wt 97.7 kg
[~2023-02-22 02:34] MED LIST changes: -ADENOSINE 83 MG in GIVE UN-DILUTED 0 ML IV ONE; -ADENOSINE 90 MG/30 ML INJ IV ONE; -AMLO-496 PO; +AMLO1TAB23 PO; -ESCI-34 PO; +ESCI1TAB37 PO; +GABA-1250 PO; -GABA300C10 PO; -SIMV-8 PO; +SIMV20TA20 PO
[2023-02-22 06:17] VITALS: BP 191/113; PULSE 87; RESP 18; TEMP 97.6; O2SAT 97
[2023-02-22] MEDS ORDERED: cloNIDine HCL 0.1 MG TAB PO ONE (06:30)
[2023-02-22] MEDS ORDERED: HYDROcodone-ACET 5/325MG TAB PO ONE (06:30)
[2023-02-22 07:24] LABS: Basophils # (auto) 0 10 ^3/uL (0-0.2); Basophils % (auto) 0.2 % (0.0-2.0); Eosinophils # (auto) 0.3 10 ^3/uL (0-0.8); Eosinophils % (auto) 3.5 % (0.0-7.0); Hematocrit 38.1 % (36.0-46.0); Hemoglobin 12.9 g/dL (12.2-16.2); Lymphocytes # (auto) 4.2 10 ^3/uL (0.4-5.4); Mean Corpuscular Hgb Conc. 33.8 g/dL (32.0-36.0); Monocytes # (auto) 0.4 10 ^3/uL (0-1.3); Monocytes % (auto) 4.6 % (0.0-12.0); Neutrophils # (auto) 3.2 10 ^3/uL (1.6-8.6); Neutrophils % (auto) 39.7 % (37.0-80.0); Red Blood Cells 4.77 10^6/uL (4.0-5.20); Red Cell Distribution Width 13.4 % (11.8-14.3); White Blood Cell 8.1 10^3/uL (4.4-10.8)
[2023-02-22 07:46] LABS: Alanine Aminotransferase 19 U/L (7-40); Albumin 4.6 g/dL (3.2-4.8); Alkaline Phosphatase 122 U/L (46-116); Anion Gap 7.6 (5-15); Aspartate Aminotransferase 13 U/L (13-40); BUN/Creatinine Ratio 12.4 (10.0-20.0); Blood Urea Nitrogen 15 mg/dL (9-23); Calcium 9.6 mg/dL (8.5-10.1); Carbon Dioxide 29.4 mmol/L (20-30); Chloride 104 mmol/L (98-107); Glucose 182 mg/dL (74-106); Potassium 4.1 mmol/L (3.5-5.1); Sodium 141 mmol/L (136-145)
[2023-02-22 07:47] LABS: Bilirubin, Total 0.5 mg/dL (0.2-1.0); Total Protein 6.9 g/dL (5.7-8.2)
== END 2023-02-22 08:29 | disposition home or self-care (01) ==
LOC: ER 02:36
DX: S09.8XXA Other specified injuries of head, initial encounter (principal); M54.2 Cervicalgia; I11.0 Hypertensive heart disease with heart failure; I50.9 Heart failure, unspecified; E11.9 Type 2 diabetes mellitus without complications; E78.5 Hyperlipidemia, unspecified; Z90.710 Acquired absence of both cervix and uterus; Z86.73 Personal history of transient ischemic attack (TIA), and cerebral infarction without residual deficits; W18.39XA Other fall on same level, initial encounter; Y93.89 Activity, other specified; Y92.090 Kitchen in other non-institutional residence as the place of occurrence of the external cause; Y99.8 Other external cause status
CPT/HCPCS: 36415; 70450; 72125; 80053; 84484; 85025

== ENCOUNTER 2023-07-22 15:56 | Emergency (ER) | payer MEDICARE, MEDICAID ==
[~2023-07-22] VITALS: Ht 170.2 cm; Wt 113.0 kg
[2023-07-22] MEDS ORDERED: cloNIDine HCL 0.1 MG TAB PO ONE (16:30)
[2023-07-22 17:12] LABS: Basophils # (auto) 0 10 ^3/uL (0-0.2); Basophils % (auto) 0.4 % (0.0-2.0); Eosinophils # (auto) 0.2 10 ^3/uL (0-0.8); Eosinophils % (auto) 3.2 % (0.0-7.0); Hematocrit 38.8 % (36.0-46.0); Lymphocytes # (auto) 2.7 10 ^3/uL (0.4-5.4); Lymphocytes % (auto) 44.2 % (10.0-50.0); Mean Corpuscular Hemoglobin 27.1 pg (28.0-32.0); Mean Corpuscular Hgb Conc. 33.6 g/dL (32.0-36.0); Mean Corpuscular Volume 80.7 fL (80.0-100.0); Monocytes # (auto) 0.2 10 ^3/uL (0-1.3); Monocytes % (auto) 3.1 % (0.0-12.0); Neutrophils % (auto) 49.1 % (37.0-80.0); Nucleated Red Blood Cells % 0.1 %; Red Blood Cells 4.82 10^6/uL (4.0-5.20); Red Cell Distribution Width 13.5 % (11.8-14.3); White Blood Cell 6.1 10^3/uL (4.4-10.8)
[2023-07-22 17:22] LABS: Chloride 104 mmol/L (98-107); Potassium 4.1 mmol/L (3.5-5.1); Sodium 138 mmol/L (136-145)
[2023-07-22 17:23] LABS: Anion Gap 6 (5-15); Calcium 9.2 mg/dL (8.5-10.1); Carbon Dioxide 28 mmol/L (20-30)
[2023-07-22 17:28] LABS: BUN/Creatinine Ratio 9.3 (10.0-20.0); Blood Urea Nitrogen 11 mg/dL (9-23); Glucose 377 mg/dL (74-106)
[2023-07-22] MEDS ORDERED: KETOROLAC TROMETH 30 MG/ML 1ML VIAL IM ONE (19:00)
[2023-07-22 19:50] VITALS: PULSE 72; RESP 16; O2SAT 96
[2023-07-22 21:01] VITALS: BP 165/93; PULSE 71; RESP 17; TEMP 97.7; O2SAT 98
== END 2023-07-22 21:08 | disposition home or self-care (01) ==
LOC: ER 15:56
DX: M25.562 Pain in left knee (principal); I11.0 Hypertensive heart disease with heart failure; I50.9 Heart failure, unspecified; I25.10 Atherosclerotic heart disease of native coronary artery without angina pectoris; E11.9 Type 2 diabetes mellitus without complications; E78.5 Hyperlipidemia, unspecified; I25.2 Old myocardial infarction; Z86.73 Personal history of transient ischemic attack (TIA), and cerebral infarction without residual deficits; Z85.9 Personal history of malignant neoplasm, unspecified; Z98.890 Other specified postprocedural states; Z79.899 Other long term (current) drug therapy
CPT/HCPCS: 36415; 73562; 80048; 83880; 85025; 96372; 99284; J1885

== ENCOUNTER 2024-01-24 18:56 | Emergency (ER) | payer MEDICARE, MEDICAID ==
[~2024-01-24] VITALS: Ht 170.2 cm; Wt 100.0 kg
[2024-01-24] MEDS: ONDANSETRON HCL 4 MG/2 ML VIAL IM ONE (21:44)
[2024-01-24] MEDS: HYDROcodone-ACET 10/325MG TAB PO ONE (21:46)
[2024-01-24 21:50] VITALS: BP 144/87; PULSE 91; RESP 20; TEMP 98.6; O2SAT 98
== END 2024-01-24 21:52 | disposition home or self-care (01) ==
LOC: EDBD 18:56 → ER 18:56
DX: S39.012A Strain of muscle, fascia and tendon of lower back, initial encounter (principal); S16.1XXA Strain of muscle, fascia and tendon at neck level, initial encounter; I25.10 Atherosclerotic heart disease of native coronary artery without angina pectoris; I11.0 Hypertensive heart disease with heart failure; I50.9 Heart failure, unspecified; F32.A Depression, unspecified; E11.9 Type 2 diabetes mellitus without complications; E78.5 Hyperlipidemia, unspecified; I25.2 Old myocardial infarction; Z85.9 Personal history of malignant neoplasm, unspecified; Z86.73 Personal history of transient ischemic attack (TIA), and cerebral infarction without residual deficits; V43.52XA Car driver injured in collision with other type car in traffic accident, initial encounter; Y93.89 Activity, other specified; Y92.89 Other specified places as the place of occurrence of the external cause; Y99.8 Other external cause status
CPT/HCPCS: 72040; 72100; 96372; 99284; J2405

== ENCOUNTER 2025-04-20 20:43 | Emergency (ER) | payer MEDICARE, MEDICAID ==
[~2025-04-20] VITALS: Ht 170.2 cm; Wt 95.0 kg
[2025-04-20 21:15] LABS: Hemoglobin 13.3 g/dL (12.2-16.2)
[2025-04-20 21:16] LABS: Hematocrit 40.6 % (36.0-46.0); Mean Corpuscular Hemoglobin 26.1 pg (28.0-32.0); Mean Corpuscular Volume 79.4 fL (80.0-100.0); Nucleated Red Blood Cells % 0.1 %
[2025-04-20 21:17] LABS: Chloride 102 mmol/L (98-107); Potassium 3.7 mmol/L (3.5-5.1); Sodium 144 mmol/L (136-145)
[2025-04-20 21:18] LABS: Anion Gap 12 (5-15); Carbon Dioxide 30 mmol/L (20-31)
[2025-04-20 21:19] LABS: Calcium 10.1 mg/dL (8.7-10.4)
[2025-04-20 21:24] LABS: BUN/Creatinine Ratio 10.3 (10.0-20.0); Blood Urea Nitrogen 15 mg/dL (9-23); Lipase 38 U/L (12-53)
[2025-04-20 21:26] LABS: Glucose 163 mg/dL (74-106)
[2025-04-20 21:47] LABS: COVID19 ANTIGEN SOFIA FIA NEGATIVE (NEGATIVE)
[2025-04-20 23:13] LABS: Urine Protein, UAD 1+ (Negative)
[2025-04-20 23:38] VITALS: BP 166/109; PULSE 98; RESP 18; TEMP 98.8; O2SAT 96
[2025-04-20] MEDS ORDERED: ZOFR4T PO (23:41)
[2025-04-20] MEDS ORDERED: NITR-87 PO (23:44)
--- NOTE | 2025-04-20 23:44 | ED.PDOC ---
GI ASSESSMENT HPI Comments 59-year-old female presents to ER with complaints of flu-like symptoms x1 day. Patient reports that he has been experiencing intermittent body aches pain, congestion and six episodes of nausea/vomiting x1 day. She denies any current pain and reports she did have routine lab work done as ordered by her PCP today but did not yet receive the results of her labs. Patient presents to ER afebrile, ambulatory, in no distress. Denies fever, headache, dizziness, n/v, shortness of breath, cough, chest pain, abdominal pain, changes in urination/bm or any further symptoms/complaints Chief Complaint: Flu like Time Seen by MD: 20:57 Primary Care Provider: Yobani Perera Reviewed Notes: Nurses Notes, Medications, Allergies Allergies: Coded Allergies: NO KNOWN ALLERGIES (Unverified , 07/18/16) Home Meds Active Scripts Nitrofurantoin Monohydrate Mac (Macrobid) 100 Mg Cap, 100 MG PO BID for 5 Days, #10 CAP 0 Refills Prov:JERI KIRKPATRICK 04/20/25 Ondansetron Odt 4MG Tab (ZOFRAN PO) 4 Mg Tb, 4 MG PO Q8HPRN PRN, #10 TAB 0 Refills ODT TAB-DISSOLVE IN MOUTH, THEN SWALLOW Prov:JERI KIRKPATRICK 04/20/25 Ciprofloxacin Hydrochloride (Ciprofloxacin HCl) 500 Mg Tab, 500 MG PO Q12HR, #9 TAB Prov:TRACY WEBB MD 06/02/21 Reported Medications Albuterol Sulfate (VENTOLIN MDI) 90 Mcg Ih, 90 MCG IN, INH 04/03/22 Insulin Degludec (Tresiba Flextouch) 200 Unit/Ml Inj, 200 UNIT SC, INJ 04/03/22 Prednisone (Prednisone) 10 Mg Benoit, 10 MG PO, PACK 04/03/22 Pantoprazole Sodium Sesquihydr (Pantoprazole Sodium) 40 Mg Tab, 1 TAB PO DAILYPRN 04/03/22 Loratadine (Claritin) 10 Mg Tab, 1 TAB PO DAILY, #30 TAB 5 Refills 04/03/22 Isosorbide Mononitrate (Isosorbide Mononitrate Er) 30 Mg Tab, 1 TAB PO DAILY, #30 TAB 5 Refills 04/03/22 Gabapentin (Gabapentin) 300 Mg Cap, 1 CAP PO TID, #90 CAP 5 Refills 04/03/22 Duloxetine HCl (Duloxetine HCl) 30 Mg Cap, 1 CAP PO DAILYPRN 04/03/22 Clopidogrel Bisulfate (CLOPIDOGREL) 75 Mg Tab, 75 MG PO DAILY, TAB 04/03/22 Baclofen (Baclofen) 10 Mg Tab, 1 TAB PO DAILYPRN 04/03/22 Atorvastatin Calcium (ATORVASTATIN CALCIUM) 40 Mg Tab, 1 TAB PO DAILYPRN 04/03/22 Aspirin (Aspir-81) 81 Mg Tab, 81 MG PO, TAB 04/03/22 Hydrocodone-Acetaminophen (Hydrocodone/Acetaminophen 10-325 mg) 1 Tab Tab, 1 TAB PO DAILY, TAB 07/19/16 Escitalopram Oxalate (Lexapro) 20 Mg Tab, 1 TAB PO DAILY, #90 TAB 3 Refills 07/19/16 Linagliptin Base (TRADJENTA) 5 Mg Tab, 1 TAB PO DAILY, #90 TAB 1 Refill 07/19/16 Simvastatin (Simvastatin) 20 Mg Tab, 20 MG PO DAILY, TAB 06/23/13 Famotidine (PEPCID TABLET) 20 Mg Tb, 20 MG PO BID 06/23/13 Amlodipine Besylate (Amlodipine Besylate) 10 Mg Tab, 10 MG PO MARK, TAB 06/23/13 Solifenacin Succinate (Vesicare) 5 Mg Tab, 5 MG PO DAILY, TAB 06/23/13 Clonidine Hcl (CATAPRES TABLET) 0.1 Mg Tb, 0.1 MG PO TID 06/23/13 Valsartan (Diovan) 160 Mg Tab, 160 MG PO BID, TAB 06/23/13 Escitalopram Oxalate (ESCITALOPRAM OXALATE) 20 Mg Tab, 20 MG PO DAILY, TAB 06/23/13 Famotidine (Famotidine) 20 Mg Tab, 1 TAB PO BID 04/18/12 Hydroxychloroquine Sulfate (Hydroxychloroquine Sulfat) 200 Mg Tab, 1 TAB PO BID 04/18/12 Metformin Hydrochloride (Metformin Hcl) 500 Mg Tab, 1 TAB PO BID, 0 Refills 04/05/11 Mode of Arrival: Ambulatory Past Medical History PAST MEDICAL HISTORY: CAD, Cancer, CHF, CVA, Depression, DM, High Lipids, HTN, [place] Surgical History: Hysterectomy 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 History Family History Family History: Family hx of DM, Family hx of Cancer Social History Smoker: Non-Smoker Alcohol: Occasionally Drugs: Denies Drug Use Lives In: Home Constitutional: reports: others (As stated in HPI) EENTM: denies: blurred vision, double vision, ear bleeding, ear discharge, ear drainage, ear pain, ear ringing, eye pain, eye redness, hearing loss, mouth pain, mouth swelling, nasal discharge, nose bleeding, nose congestion, nose pain, photophobia, tearing, throat pain, throat swelling, voice changes, others Respiratory: denies: cough, hemoptysis, orthopnea, SOB at rest, shortness of breath, SOB with excertion, stridor, wheezing, others Cardiovascular: denies: chest pain, dizzy spells, diaphoresis, Dyspnea on exertion, edema, irregular heart beat, left arm pain, lightheadedness, palpitati ons, PND, syncope, others Gastrointestinal: reports: others (As stated in HPI) Genitourinary: denies: abnormal vagina bleeding, burning, dyspareunia, dysuria, flank pain, frequency, hematuria, incontinence, pain, , vagina discharge, urgency, others Neurological: denies: dizziness, fainting, headache, left sided numbness, left sided weakness, numbness, paresthesia, pre-existing deficit, right sided numbness, right sided weakness, seizure, speech problems, tingling, tremors, weakness, others Musculoskeletal: denies: back pain, gout, joint pain, joint swelling, muscle pain, muscle stiffness, neck pain, others Integumetry: denies: bruises, change in color, change in hair/nails, dryness, laceration, lesions, lumps, rash, wounds, others Allergic/Immunocompromised: denies: Difficulty Healing, Frequent Infections, Hives, Itching, others Hematologic/Lymphatic: denies: anemia, blood clots, easy bleeding, easy bruising, swollen glands, others Endocrine: denies: excessive hunger, excessive sweating, excessive thirst, excessive urination, flushing, intolerance to cold, intolerance to heat, unexplained weight gain, unexplained weight loss, others Psychiatric: denies: anxiety, bipolar disorder, depression, hopeless, panic disorder, schizophrenia, sleepless, suicidal, others Physical Exam General Appearance: No Apparent Distress, Obese HEENT: Normal ENT Inspection, PERRL/EOMI, Pharynx Normal, TMs Normal Neck: Full Range of Motion, Non-Tender, Normal Respiratory: Chest Non-Tender, Lungs Clear, No Accessory Muscle Use, No Respiratory Distress, Normal Breath Sounds Cardiovascular: No Murmur, No Gallop, Regular Rate/Rhythm Breast Exam: Deferred Gastrointestinal: Non Tender, No Pulsatile Mass, Soft Genitalia: Deferred Pelvic: Deferred Rectal: Deferred Extremities: Normal capillary refill Neurologic: Alert, export manager II-XII nml as Tested, No Motor Deficits, Normal Affect, Normal Mood, No Sensory Deficits Cerebellar Function: Normal Reflexes: Normal Skin: Dry, Normal Color, Warm Peripheral Pulses: 2+ Radial (R), 2+ Radial (L), 2+ Brachial (R), 2+ Brachial (L) Lymphatic: No Adenopathy Was a procedure done? Was a procedure done?: No Sedation Sedation?: No GI differential Dx Differential Diagnosis: Appendicitis, GI hemorrhage, Ischemic Bowel, Trauma intraabdominal X-Ray, Labs, Meds, VS Vital Signs Date Time Temp Pulse Resp B/P (MAP) Pulse Ox O2 Delivery O2 Flow Rate FiO2 04/20/25 23:38 98.8 98 18 166/109 (128) 96 98.8 04/20/25 23:38 Room Air* 0 21 04/20/25 20:46 98.8 98 18 166/109 96 98.8 Lab Test 04/20/25 21:03 04/20/25 21:01 Range/Units Urine Color Yellow Yellow Urine Clarity Clear Clear Urine pH 6.0 5.0-9.0 Urine Specific [place] 1.022 1.001-1.035 Urine Protein 1+ H Negative Urine Ketones Negative Negative Urine Blood Negative Negative /uL Urine Nitrite Negative Negative Urine Bilirubin Negative Negative Urine Urobilinogen Normal Negative mg/dL Urine Leukocyte Esterase Trace Negative /uL Urine RBC 2 0 - 4 /hpf Urine Microscopic WBC 5 0-5 /HPF Urine Squamous Epithelial Cells Few <5 /hpf Urine Bacteria None seen None Seen /hpf Urine Hyaline Casts Few 0 - 2 /lpf Urine Mucus Few None Seen Urine Glucose Normal Normal mg/dL Influenza Type A Antigen Negative Negative Influenza Type B Antigen Negative Negative SARS-CoV-2 Antigen (Rapid) Negative NEGATIVE White Blood Count 7.1 4.4-10.8 10^3/uL Red Blood Count 5.12 4.0-5.20 10^6/uL Hemoglobin 13.3 12.2-16.2 g/dL Hematocrit 40.6 36.0-46.0 % Mean Corpuscular Volume 79.4 L 80.0-100.0 fL Mean Corpuscular Hemoglobin 26.1 L 28.0-32.0 pg Mean Corpuscular Hemoglobin Concent 32.8 32.0-36.0 g/dL Red Cell Distribution Width 14.0 11.8-14.3 % Platelet Count 240 140-450 10^3/uL Mean Platelet Volume 7.6 6.9-10.8 fL Neutrophils (%) (Auto) 48.8 37.0-80.0 % Lymphocytes (%) (Auto) 45.8 10.0-50.0 % Monocytes (%) (Auto) 4.1 0.0-12.0 % Eosinophils (%) (Auto) 0.9 0.0-7.0 % Basophils (%) (Auto) 0.4 0.0-2.0 % Neutrophils # (Auto) 3.5 1.6-8.6 10 ^3/uL Lymphocytes # (Auto) 3.2 0.4-5.4 10 ^3/uL Monocytes # (Auto) 0.3 0-1.3 10 ^3/uL Eosinophils # (Auto) 0.1 0-0.8 10 ^3/uL Basophils # (Auto) 0 0-0.2 10 ^3/uL Nucleated Red Blood Cells 0.1 % Sodium Level 144 136-145 mmol/L Potassium Level 3.7 3.5-5.1 mmol/L Chloride Level 102 98-107 mmol/L Carbon Dioxide Level 30 20-31 mmol/L Anion Gap 12 5-15 Blood Urea Nitrogen 15 9-23 mg/dL Creatinine 1.46 H 0.550-1.02 mg/dL Glomerular Filtration Rate Calc 41 >90 mL/min BUN/Creatinine Ratio 10.3 10.0-20.0 Serum Glucose 163 H 74-106 mg/dL Calcium Level 10.1 8.7-10.4 mg/dL Lipase 38 12-53 U/L CBC reviewed without any significant abnormalities BMP reviewed without any significant abnormalities Lipase reviewed-normal Swab results reviewed-negative Urinalysis reviewed-urine leukocyte esterase trace Previous chart history reviewed Zofran 4 mg p.o. ordered Patient had improvement in symptoms, tolerating p.o. intake well and well appearing/in no distress prior to discharge Diet education discussed Advised to follow up with PCP in 1-2 days Patient verbalized understanding and agreeable with current plan of care Advised to return to ER immediately if symptoms worsen Time of 1ST Reevaluation: 23:20 Reevaluation 1ST: N/A Patient Education/Counseling: Diagnosis, Treatment, Prognosis, Need For Follow Up Family Education/Counseling: No Family Present SEPSIS Sepsis Screen Date sepsis recognized/suspect: Apr 20, 2025 Time Sepsis recognized/suspect: 2045 Recent Procedure: No On Antibiotic Therapy: No Respiratory Rate >20: No Heart Rate >90: Yes Temp<36 C (96.8 F) or >38.3 C: No SBP <90 or MAP <65 mmHG: No New Acute Mental Status Change: No Is the patient on CPAP, BIPAP,: No Physician Orders Ondansetron Po (Zofran Po) (04/20/25 23:45) Vital Signs Date Time Temp Pulse Resp B/P (MAP) Pulse Ox O2 Delivery O2 Flow Rate FiO2 04/20/25 23:38 98.8 98 18 166/109 (128) 96 98.8 04/20/25 23:38 Room Air* 0 21 04/20/25 20:46 98.8 98 18 166/109 96 98.8 Laboratory Tests Test 04/20/25 21:01 White Blood Count 7.1 10^3/uL (4.4-10.8) Departure 1 Departure Time of Disposition: 23:41 Impression: Primary Impression: Viral gastroenteritis Additional Impression: UTI (urinary tract infection) Qualified Codes: N30.00 - Acute cystitis without hematuria Disposition: HOME / SELF CARE / HOMELESS Condition: Stable e-Prescriptions Nitrofurantoin Monohydrate Mac (Macrobid) 100 Mg Cap 100 MG PO BID for 5 Days, #10 CAP 0 Refills Prov: JERI KIRKPATRICK 04/20/25 Ondansetron Odt 4MG Tab (ZOFRAN PO) 4 Mg Tb 4 MG PO Q8HPRN PRN, #10 TAB 0 Refills ODT TAB-DISSOLVE IN MOUTH, THEN SWALLOW Prov: JERI KIRKPATRICK 04/20/25 Discharged With: Self Critical Care Note Critical Care Time?: No Stability Stability form required: No Heart Score Heart Score: Heart Score Response (Comments) Value History N/A 0 EKG N/A 0 Age N/A 0 Risk Factors N/A 0 Troponin N/A 0 Total 0 JERI KIRKPATRICK Apr 20, 2025 23:44
[2025-04-20] MEDS: ONDANSETRON ODT 4 MG TAB PO ONE (23:45)
== END 2025-04-20 23:51 | disposition home or self-care (01) ==
LOC: ER 20:45
DX: A08.4 Viral intestinal infection, unspecified (principal); N39.0 Urinary tract infection, site not specified; I11.0 Hypertensive heart disease with heart failure; I50.9 Heart failure, unspecified; E11.9 Type 2 diabetes mellitus without complications; F32.A Depression, unspecified; I25.10 Atherosclerotic heart disease of native coronary artery without angina pectoris; I25.2 Old myocardial infarction; Z79.82 Long term (current) use of aspirin; Z20.822 Contact with and (suspected) exposure to COVID-19; Z79.84 Long term (current) use of oral hypoglycemic drugs; Z79.891 Long term (current) use of opiate analgesic; Z79.899 Other long term (current) drug therapy; Z86.73 Personal history of transient ischemic attack (TIA), and cerebral infarction without residual deficits; Z90.710 Acquired absence of both cervix and uterus
CPT/HCPCS: 36415; 80048; 81001; 83690; 85025; 87426; 87804; 99283; Q0162